=== PATIENT | female | born 1995 | race Caucasian/White ===

== ENCOUNTER 2017-04-29 16:11 | Emergency (ER) | payer BC ==
[2017-04-29 16:19] VITALS: BP 115/72
--- NOTE | 2017-04-29 17:05 | EDM.PDOC ---
ED HPI GENERAL MEDICAL PROBLEM - General Chief Complaint: Upper Extremity Injury/Pain Stated Complaint: RT SHOULDER PAIN Time Seen by Provider: 04/29/17 16:40 Source of Information: Reports: Patient History Limitations: Reports: No Limitations - History of Present Illness INITIAL COMMENTS - FREE TEXT/NARRATIVE: 21-year-old female presents for evaluation treatment of injury to the right shoulder. Patient reports that she has previously had right rotator cuff tear and a repair this past September 2016 in [place], [place]. 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 Reports that this sibling then " weighted her" and she felt a pulling popping sensation in her right arm. She reports that she had some swelling initially but this is now mostly resolved. She reports some numbness and tingling into the right arm that comes and goes. She has also appreciated decreased range of motion. She has been using ibuprofen and icing the shoulder. No bruising noted. Patient feels she may have re-tore her rotator cuff. Patient reports that her previous rotator cuff tear nothing was seen on MRI. She is requesting a referral to orthopedics [facility]. Patient is left handed. Location: Reports: Upper Extremity, Right Right Shoulder Pain Score (Numeric/FACES): 4 - Related Data Allergies Allergy/AdvReac Type Severity Reaction Status Date / Time acetaminophen Allergy Nausea Verified 04/29/17 16:20 amoxicillin Allergy Hives Verified 04/29/17 16:20 codeine Allergy Anaphylactic Verified 04/29/17 16:20 Shock Home Meds: Home Meds Escitalopram [Lexapro] 10 mg PO DAILY 04/29/17 [History] Past Medical History Musculoskeletal History: Reports: Other (See Below) Other Musculoskeletal History: rotator cuff repair - Past Surgical History Musculoskeletal Surgical History: Reports: Shoulder Surgery Social & Family History - Tobacco Use Smoking Status *Q: Current Every Day Smoker Years of Tobacco use: 4 Packs/Tins Daily: 0.5 - Recreational Drug Use Recreational Drug Use: No Review of Systems - Review of Systems Review Of Systems: See Below Musculoskeletal: Reports: Shoulder Pain (right ), Joint Swelling (initally to the right shoulder now resolved) Skin: Denies: Bruising Neurological: Reports: Numbness, Tingling ED EXAM, GENERAL - Physical Exam Exam: See Below Exam Limited By: No Limitations General Appearance: Alert, WD/WN, No Apparent Distress Respiratory/Chest: No Respiratory Distress, Lungs Clear, Normal Breath Sounds Cardiovascular: Normal Peripheral Pulses, Regular Rate, Rhythm, No Murmur Peripheral Pulses: 3+: Radial (L), Radial (R) Extremities: Normal Inspection, Normal Capillary Refill, Limited Range of Motion (able to forward flex right shoulder to 110 degrees; able to abduct to 90 degress, able to adduct to 110 degress, able to extend to 30 degrees), Other (+ empty can test, + hawking test, - neer sign, - lift off testing; pain with palpation of the right shoulder). No: Increased Warmth, Redness Neurological: Alert, Oriented, Normal Cognition Course - Vital Signs Last Recorded V/S: Last Vital Signs Temp 36.6 C 04/29/17 16:17 Pulse 87 04/29/17 16:17 Resp 16 04/29/17 16:17 BP 115/72 04/29/17 16:17 Pulse Ox 98 04/29/17 16:17 - Orders/Labs/Meds Orders: Active Orders 24 hr Category Date Time Status Shoulder Comp Rt [CR] Stat Exams 04/29/17 16:52 Taken - Radiology Interpretation Free Text/Narrative:: xray of the right shoulder shows no acute fractures or dislocations. reviewed by myself and dr. samayoa - Re-Assessments/Exams Free Text/Narrative Re-Assessment/Exam: 04/29/17 17:14 Decided to go ahead and get xrays to rule out fractures, dislocations, AC separation, etc. Nothing acute appreciated on xray. Reviewed with patient. Clinically she has reinjured her rotator cuff. I will have her follow-up with ortho. Patient placed in a shoulder sling. Discharge instructions as documented. Departure - Departure Time of Disposition: 17:13 Disposition: Home, Self-Care 01 Condition: Good Clinical Impression: Shoulder injury - Discharge Information Instructions: Shoulder Pain Referrals: PCP,None [Primary Care Provider] - Anthony Dickerson MD [Physician] - Forms: ED Department Discharge Additional Instructions: [id number] ibuprofen as needed for pain. Ice the shoulder as needed for swelling relief. Shoulder sling. Remove the arm from the sling several times a day and perform pendulum arm circles to prevent frozen shoulder. Follow-up with Dr. Dickerson. Please call [phone] tomorrow to schedule with Dr. Dickerson. Please return to the ER if your symptoms change or worsen. - My Orders Last 24 Hours: My Active Orders 04/29/17 16:52 Shoulder Comp Rt [CR] Stat - Assessment/Plan Last 24 Hours: My Active Orders 04/29/17 16:52 Shoulder Comp Rt [CR] Stat
--- NOTE | 2017-04-30 08:38 | CR ---
Right shoulder: Three views of the right shoulder were obtained. Glenohumeral joint and acromioclavicular joint appear unremarkable. No fracture, dislocation or other bony abnormality is identified. Impression: 1. No abnormality is identified on three-view right shoulder study. Diagnostic code #1
== END 2017-04-29 17:30 | disposition home or self-care (01) ==
LOC: JD.ED 16:11
DX: S49.91XA Unspecified injury of right shoulder and upper arm, initial encounter (principal); F17.210 Nicotine dependence, cigarettes, uncomplicated; Z98.890 Other specified postprocedural states; Z79.899 Other long term (current) drug therapy; Z88.1 Allergy status to other antibiotic agents; Z88.5 Allergy status to narcotic agent; Z88.6 Allergy status to analgesic agent; X58.XXXA Exposure to other specified factors, initial encounter
CPT/HCPCS: 73030-26-RT; 73030-RT; 99283

== ENCOUNTER 2017-05-08 13:09 | Emergency (ER) | payer BC ==
[2017-05-08 13:19] VITALS: BP 128/72
--- NOTE | 2017-05-08 13:22 | EDM.PDOC ---
ED HPI GENERAL MEDICAL PROBLEM - General Chief Complaint: Upper Extremity Injury/Pain Stated Complaint: Right arm pain Time Seen by Provider: 05/08/17 13:22 Source of Information: Reports: Patient, Old Records, RN Notes Reviewed History Limitations: Reports: No Limitations - History of Present Illness INITIAL COMMENTS - FREE TEXT/NARRATIVE: 21 year old female presents to the ED with complaints of right shoulder pain, numbness, and tingling. She injured her right shoulder on 04/29/17 while picking up her two year old sister. She came to the ED on 04/29/17 and had x-rays which were negative for bony abnormalities. She came back today due to intermittent numbness and tingling that goes from her shoulder to her wrist. There is no involvement of the fingers or hand. 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 She reports decreased range of motion to the right shoulder. She had bruising to her deltoid which has resolved. She has a history of rotator cuff injury tears and has had two surgeries in the past. She says her ROM was decreased chronically but that it's even less since this recent injury. She has no fever, chills, or sweats. 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: Other (see below) Other Treatments MANUFACTURING INTERN: ibuprofen at 0800 Right Arm Pain Score (Numeric/FACES): 3 - Related Data Allergies Allergy/AdvReac Type Severity Reaction Status Date / Time acetaminophen Allergy Nausea Verified 05/08/17 13:14 amoxicillin Allergy Hives Verified 05/08/17 13:14 codeine Allergy Anaphylactic Verified 05/08/17 13:14 Shock Home Meds: Home Meds Escitalopram [Lexapro] 20 mg PO DAILY 04/29/17 [History] Naproxen 500 mg PO BID #30 tablet 05/08/17 [Rx] Past Medical History Musculoskeletal History: Reports: Other (See Below) Other Musculoskeletal History: rotator cuff repair Psychiatric History: Reports: Anxiety, Depression - Past Surgical History Musculoskeletal Surgical History: Reports: Shoulder Surgery Social & Family History - Tobacco Use Smoking Status *Q: Current Every Day Smoker Years of Tobacco use: 4 Packs/Tins Daily: 1 - Caffeine Use Caffeine Use: Reports: Energy Drinks, Soda - Recreational Drug Use Recreational Drug Use: No Review of Systems - Review of Systems Review Of Systems: See Below Constitutional: Reports: No Symptoms. Denies: Chills, Fever Musculoskeletal: Reports: Shoulder Pain, Joint Pain. Denies: Neck Pain, Arm Pain Skin: Reports: No Symptoms. Denies: Erythema Neurological: Reports: Numbness, Tingling. Denies: Weakness ED EXAM, GENERAL - Physical Exam Exam: See Below Exam Limited By: No Limitations General Appearance: Alert, WD/WN, No Apparent Distress Respiratory/Chest: No Respiratory Distress, Lungs Clear, Normal Breath Sounds Cardiovascular: Regular Rate, Rhythm Extremities: Normal Inspection, Other (Mild decreased ROM to the right shoulder. Decreased flexion of right shoulder. Normal adduction and abduction. No joint effusion or erythema. She has negative impingment sign. Neurovascular status intact at this time. ) Course - Vital Signs Last Recorded V/S: Last Vital Signs Temp 98.0 F 05/08/17 13:15 Pulse 117 H 05/08/17 13:15 Resp 16 05/08/17 13:15 BP 128/72 05/08/17 13:15 Pulse Ox 98 05/08/17 13:15 - Re-Assessments/Exams Free Text/Narrative Re-Assessment/Exam: Patient denies additional injury since her last visit. Repeat x-rays are not indicated. Her neurovascular exam is normal. She will be started on Naproxyn 500mg PO BID. She as taking large amounts of Ibuprofen. She is allergic to Tylenol. She was offered Tramadol but declined. She as educated on supportive care. She was instructed to avoid any activities that aggravate her shoulder. 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 She was given a note for class. She has an appointment with Dr. Dickerson next week. Departure - Departure Time of Disposition: 13:43 Disposition: Home, Self-Care 01 Condition: Good Clinical Impression: Shoulder injury Qualifiers: Encounter type: initial encounter Laterality: right Qualified Code(s): S49.91XA - Unspecified injury of right shoulder and upper arm, initial encounter - Discharge Information Prescriptions: Naproxen 500 mg PO BID #30 tablet Instructions: Shoulder Pain, [id number] Referrals: PCP,Not In Area [Primary Care Provider] - Forms: ED Department Discharge, ED Return to Work/School Form Additional Instructions: Rest, ice and elevate Naproxyn 500mg twice a day (breakfast and supper) Avoid movements or repetitive movements that cause pain or discomfort Follow-up with Dr. Dickerson next week as scheduled.
== END 2017-05-08 13:56 | disposition home or self-care (01) ==
LOC: JD.ED 13:09
DX: S49.91XD Unspecified injury of right shoulder and upper arm, subsequent encounter (principal); Z88.5 Allergy status to narcotic agent; Z88.1 Allergy status to other antibiotic agents; F32.9 Major depressive disorder, single episode, unspecified; F41.9 Anxiety disorder, unspecified; Z79.899 Other long term (current) drug therapy; F17.210 Nicotine dependence, cigarettes, uncomplicated
CPT/HCPCS: 99283